=== PATIENT | male | born 1995 | race Caucasian/White ===

== ENCOUNTER 2024-06-25 19:50 | Emergency (ER) | payer MEDICARE, OTHER ==
[~2024-06-25] VITALS: Ht 177.8 cm; Wt 81.6 kg
--- NOTE | 2024-06-25 20:49 | NUR ---
Pt out of ER for CT.
--- NOTE | 2024-06-25 21:01 | NUR ---
Pt back to ER from CT.
[2024-06-25] MEDS ORDERED: NAPR-1009 PO (21:15)
[2024-06-25] MEDS ORDERED: KETOROLAC TROMETHAMINE 30 MG INJ ONE (21:36)
[2024-06-25] MEDS: KETOROLAC TROMETHAMINE 30 MG INJ IM ONE (21:40)
--- NOTE | 2024-06-25 21:40 | NUR ---
Patient discharged to home in stable condition. Written and verbal after care instructions given. Patient verbalizes understanding of instructions. Stressed follow up or return to ER for worsening s/s.
[2024-06-25 21:41] VITALS: BP 130/80; O2SAT 98
== END 2024-06-25 21:52 | disposition home or self-care (01) ==
LOC: ER 19:50
DX: Z04.1 Encounter for examination and observation following transport accident (principal); J45.909 Unspecified asthma, uncomplicated; Z79.899 Other long term (current) drug therapy; Z88.8 Allergy status to other drugs, medicaments and biological substances; V89.0XXA Person injured in unspecified motor-vehicle accident, nontraffic, initial encounter; Y93.89 Activity, other specified; Y92.89 Other specified places as the place of occurrence of the external cause; Y99.8 Other external cause status
CPT/HCPCS: 99285; 70450; 72125; 96372; J1885; A4606; A4663